=== PATIENT | female | born 1990 ===

== ENCOUNTER 2024-03-04 08:15 | Inpatient (IN) | payer OTHER ==
[~2024-03-04] VITALS: Ht 157.5 cm; Wt 56.7 kg
[2024-03-04 08:57] LABS: URINE APPEARANCE Clear; URINE BILIRRUBIN Negative (NEGATIVE); URINE BLOOD Negative; URINE COLOR Yellow; URINE GLUCOSE Negative (NEGATIVE); URINE KETONE Negative (NEGATIVE); URINE LEUKOCYTE Small; URINE NITRATE Negative; URINE PROTEIN Negative (NEGATIVE)
[2024-03-04 08:59] LABS: URINE BACTERIA 1657.9 uL (0.0-1933); URINE EPITHELIAL CELLS 21.9 uL (0.0-38.8); URINE WBC 35.8 uL (0.0-23.2)
[2024-03-04 09:03] LABS: HEMOGLOBIN 11.6 g/dL (12.0-15.00); MEAN CELL VOLUME 89.4 fL (80.00-100.00); MEAN CORPUSCULAR HEMOGLOBIN 29.7 pg (27.00-32.0); MEAN CORPUSCULAR HGB CONC 33.2 g/dl (32.0-36.0); PLATELET COUNT 268 K/uL (150-450); RED BLOOD COUNT 3.92 M/uL (4.00-6.00); RED CELL DISTRIBUTION WIDTH 16.4 % (11.5-14.5)
[2024-03-04 09:09] LABS: URINE RBC 1.5 uL (0.0-20.8)
[2024-03-04 09:22] LABS: INR 1.01; PARTIAL THROMBOPLASTIN TIME 25.4 SECONDS (22.0-34.0)
[2024-03-04 10:09] LABS: ALBUMIN 3.9 gm/dL (3.4-5.0); BILIRUBIN TOTAL 0.39 mg/dL (0.3-1.2); CALCIUM 9.1 mg/dL (8.5-10.1); CREATININE SERUM 0.67 mg/dL (0.55-1.02); GFR 100.16; GLOBULINA 3.7 G/DL (2.4-3.5); POTASSIUM 4.05 mEq/L (3.5-5.1); TOTAL PROTEIN 7.6 gm/dL (6.4-8.2)
[2024-03-11] MEDS ORDERED: METRONIDAZOLE/SODIUM CHLORIDE 500 MG/100 ML PIGGYBACK IV ONE (10:45)
[2024-03-11] MEDS ORDERED: CEFOXITIN SODIUM 2,000 MG VIAL IV ONE (10:45)
[2024-03-11] MEDS ORDERED: THROMBIN,HU/FIBRINOGEN/CALCIUM 10 ML SYRINGE TOP ONE (13:00)
[2024-03-11] MEDS ORDERED: VISTASEAL DUAL APPICATOR 1 EACH APPL TOP ONE (13:00)
[2024-03-11] MEDS ORDERED: SUGAMMADEX SODIUM 200 MG/2 ML VIAL IV ONE (13:00)
[2024-03-11] MEDS ORDERED: ONDANSETRON HCL 2 MG/ML VIAL IV PRN (13:30)
[2024-03-11] MEDS ORDERED: MORPHINE SULFATE 4 MG/ML CARTRIDGE IV PRN (13:30)
[2024-03-11] MEDS ORDERED: RINGERS SOLUTION,LACTATED 1,000 ML IV SCH (13:30)
[2024-03-11] MEDS ORDERED: KETOROLAC TROMETHAMINE 30 MG VIAL IV PRN (13:30)
[2024-03-11] MEDS ORDERED: MORPHINE SULFATE 4 MG/ML VIAL IV ONE ×2 (14:05→14:40)
[2024-03-11] MEDS ORDERED: SIMETHICONE 125 MG CAPSULE PO SCH (18:00)
[2024-03-11] MEDS ORDERED: CEFOXITIN SODIUM 2,000 MG in DEXTROSE 5 % IN WATER 100 ML IV SCH (18:00)
[2024-03-11 18:09] VITALS: BP 100/67
[2024-03-11 18:51] LABS: HEMATOCRIT 33.9 % (36.0-45.00); HEMOGLOBIN 11.5 g/dL (12.0-15.00); MEAN CORPUSCULAR HEMOGLOBIN 30.8 pg (27.00-32.0); MEAN CORPUSCULAR HGB CONC 33.8 g/dl (32.0-36.0); PLATELET COUNT 211 K/uL (150-450); RED BLOOD COUNT 3.73 M/uL (4.00-6.00); RED CELL DISTRIBUTION WIDTH 16.5 % (11.5-14.5)
[2024-03-11] MEDS ORDERED: FAMOTIDINE/PF 20 MG/2 ML VIAL IV SCH (21:00)
[2024-03-11] MEDS ORDERED: METRONIDAZOLE/SODIUM CHLORIDE 100 ML IV SCH (21:00)
[2024-03-12 00:52] VITALS: BP 100/61
[2024-03-12 06:35] VITALS: BP 99/67
[2024-03-12 08:24] VITALS: BP 98/53
[2024-03-12] MEDS ORDERED: FAMOtidine 20 MG TABLET PO SCH (09:00)
[2024-03-12] MEDS ORDERED: ACETAMINOPHEN-1 EAC2 PO (09:05)
[2024-03-12] MEDS ORDERED: NAPR500T14 PO (09:06)
[2024-03-12] MEDS ORDERED: FAMOTIDINE20 MG PO (09:06)
[2024-03-12] MEDS ORDERED: NAPROXEN 500 MG TABLET PO PRN (09:15)
[2024-03-12] MEDS ORDERED: ACETAMINOPHEN WITH CODEINE 1 UDTAB TABLET PO PRN (09:15)
== END 2024-03-12 10:38 | disposition home or self-care (01) | DRG 743 ==
LOC: O/R 03-11 05:55 → SURH 03-11 08:15 → OB/GYN 03-11 16:07
PROVIDERS: ADMIT Obstetrics & Gynecology; ATTEND Obstetrics & Gynecology
PROC: 0UT7FZZ Resection of Bilateral Fallopian Tubes, Via Natural or Artificial Opening With Percutaneous Endoscopic Assistance (ICD-10-PCS; 2024-03-11)
PROC: 0JQC0ZZ Repair Pelvic Region Subcutaneous Tissue and Fascia, Open Approach (ICD-10-PCS; 2024-03-11)
PROC: 0USG4ZZ Reposition Vagina, Percutaneous Endoscopic Approach (ICD-10-PCS; 2024-03-11)
PROC: 0TJB8ZZ Inspection of Bladder, Via Natural or Artificial Opening Endoscopic (ICD-10-PCS; 2024-03-11)
PROC: 0UT9FZZ Resection of Uterus, Via Natural or Artificial Opening With Percutaneous Endoscopic Assistance (ICD-10-PCS; principal; 2024-03-11 09:00)
DX: D25.1 Intramural leiomyoma of uterus (principal); Z20.822 Contact with and (suspected) exposure to COVID-19; N81.11 Cystocele, midline; N92.0 Excessive and frequent menstruation with regular cycle; N94.5 Secondary dysmenorrhea